=== PATIENT | female | born 1985 | race African-American/Black ===

== ENCOUNTER → 2019-12-02 | Outpatient (CLI) | payer OTHER, MEDICAID | END | disposition home or self-care (01) | LOC: LAB 10:31 | PROVIDERS: ATTEND Obstetrics & Gynecology | DX: Z01.818 Encounter for other preprocedural examination (principal); Z11.59 Encounter for screening for other viral diseases | CPT/HCPCS: C9803; U0003 ==

== ENCOUNTER → 2019-12-06 | Day surgery (SDC) | payer MEDICAID ==
[~2019-12-06] VITALS: Ht 167.6 cm; Wt 57.2 kg
[~2019-12-06] MED LIST: LACTATED RINGERS 1,000 ML IV SCH
[2019-12-06 10:31] LABS: EOSINOPHILS % 4.6 % (0.0-5.0); HEMATOCRIT. 32.7 % (36.0-48.0); HEMOGLOBIN. 10.4 g/dL (12.0-16.0); LYMPHOCYTES % 31.8 % (20.0-50.0); MEAN CORPUSCULAR HEMOGLOBIN 24.9 pg (28.0-32.0); MEAN CORPUSCULAR VOLUME 78.4 fL (81.0-99.0); MEAN PLATELET VOLUME 9.8 fl (7.4-10.4); MONOCYTES % 9.6 % (2.0-8.0); PLATELET 233 x1000/uL (130-400); RED BLOOD CELL COUNT 4.18 mill/uL (4.2-5.4); RED CELL DISTRIBUTION WIDTH 17.8 % (11.6-14.6)
[2019-12-06 10:31] LABS: CLARITY URINE CLEAR (CLEAR); COLOR URINE YELLOW (YELLOW); KETONES URINE NEGATIVE (NEGATIVE); LEUKOCYTE ESTERASE URINE TRACE (NEGATIVE); NITRITE URINE NEGATIVE (NEGATIVE); OCCULT BLOOD URINE NEGATIVE (NEGATIVE); PROTEIN URINE NEGATIVE (NEGATIVE); SPECIFIC GRAVITY URINE 1.014 (1.005-1.030); UROBILINOGEN URINE 0.2 E.U./dL (0.2-1.0)
[2019-12-06 10:34] LABS: UCG SCREEN NEGATIVE
[2019-12-06 10:38] LABS: CHLORIDE 110 mEq/L (98-107)
[2019-12-06 10:40] LABS: PROTHROMBIN TIME 10.9 sec (9.6-11.0)
== END | disposition home or self-care (01) ==
LOC: OR 09:41
PROVIDERS: ATTEND Obstetrics & Gynecology
DX: D25.9 Leiomyoma of uterus, unspecified (principal); Z53.8 Procedure and treatment not carried out for other reasons; N92.0 Excessive and frequent menstruation with regular cycle; Z88.8 Allergy status to other drugs, medicaments and biological substances; Z79.899 Other long term (current) drug therapy
CPT/HCPCS: 36415; 80048; 81003; 81025; 85025; 86850; 86900

== ENCOUNTER → 2019-12-16 | Outpatient (CLI) | payer MEDICAID | END | disposition home or self-care (01) | LOC: LAB 10:29 | PROVIDERS: ATTEND Obstetrics & Gynecology | DX: Z01.818 Encounter for other preprocedural examination (principal); Z11.59 Encounter for screening for other viral diseases | CPT/HCPCS: C9803; U0003 ==

== ENCOUNTER 2019-12-20 06:34 | Day surgery (SDC) | payer MEDICAID ==
[~2019-12-20] VITALS: Ht 167.6 cm; Wt 57.2 kg
[2019-12-20] MEDS ORDERED: SKIN ADHESIVE 0.7 GM EA TOP ONE (07:06)
[2019-12-20] MEDS ORDERED: BUPIVACAINE HCL ONE (07:06)
[2019-12-20] MEDS ORDERED: VASOPRESSIN 20 UNIT/ML 1ML ONE (07:07)
[2019-12-20] MEDS ORDERED: LIDOCAINE HCL 2% JELLY 5ML ONE (07:27)
[2019-12-20 07:47] LABS: UCG SCREEN NEGATIVE
[2019-12-20] MEDS ORDERED: CEFAZOLIN SODIUM 1000MG/VIAL ONE (10:05)
[2019-12-20] MEDS ORDERED: SUCCINYLCHOLINE CHLORIDE 200MG/10ML IV ONE (10:05)
[2019-12-20] MEDS ORDERED: MIDAZOLAM HCL 2 MG/2 ML VIAL ONE (10:05)
[2019-12-20] MEDS ORDERED: EPHEDRINE SULFATE 50MG/ML VIAL ONE (10:05)
[2019-12-20] MEDS ORDERED: GLYCOPYRROLATE 0.2 MG/ML 2ML VIAL ONE (10:05)
[2019-12-20] MEDS ORDERED: PROPOFOL 200MG/20ML VIAL IV ONE (10:05)
[2019-12-20] MEDS ORDERED: SODIUM CHLORIDE 0.9% 10ML VIAL ONE (10:05)
[2019-12-20] MEDS ORDERED: ROCURONIUM BROMIDE 10MG/ML VIAL 5ML IV ONE (10:05)
[2019-12-20] MEDS ORDERED: NEOSTIGMINE METHYLSULFATE 1MG/ML 10 ML VIAL ONE (10:05)
[2019-12-20] MEDS ORDERED: FENTANYL CITRATE/PF 50MCG/ML 2ML VIAL ONE ×3 (10:05→13:14)
[2019-12-20] MEDS ORDERED: PHENYLEPHRINE HCL 10 MG/ML 1ML (IV VIAL) IV ONE (10:06)
[2019-12-20] MEDS ORDERED: ONDANSETRON HCL 4MG/2ML INJ ONE (10:06)
[2019-12-20] MEDS ORDERED: METOCLOPRAMIDE HCL 10MG/2ML VIAL ONE (10:06)
[2019-12-20] MEDS ORDERED: SODIUM CHLORIDE 0.9% 1,000 ML IV ONE (11:58)
[2019-12-20] MEDS ORDERED: HYDROMORPHONE HCL/PF 2MG/ML CPJ IV PRN (12:00)
[2019-12-20] MEDS ORDERED: MORPHINE SULFATE 2 MG/ML CPJ (NOT FOR IM USE) IV PRN (12:00)
[2019-12-20] MEDS ORDERED: ONDANSETRON HCL 4MG/2ML INJ IV PRN (12:00)
[2019-12-20] MEDS ORDERED: MEPERIDINE HCL/PF 25MG/ML CPJ IV PRN ×2 (12:00)
[2019-12-20 14:37] VITALS: BP 119/68
== END 2019-12-20 17:00 | disposition home or self-care (01) ==
LOC: OR 06:34
PROVIDERS: ATTEND Obstetrics & Gynecology
DX: D25.9 Leiomyoma of uterus, unspecified (principal); N92.0 Excessive and frequent menstruation with regular cycle; R10.2 Pelvic and perineal pain; Z79.899 Other long term (current) drug therapy; Z98.890 Other specified postprocedural states
CPT/HCPCS: 36415; 58545; 81025; 86850; 86900; 86901; 88305; J0330; J0690; J2175; J2250; J2370; J2405; J2704; J2765; J3010; J3490; S2900; J2710